=== PATIENT | male | born 1990 | race Caucasian/White ===

== ENCOUNTER → 2018-10-07 | Emergency (ER) | payer SELFPAY | END | disposition home or self-care (01) | LOC: OHCORT 12:50 | DX: Z00.00 Encounter for general adult medical examination without abnormal findings (principal) ==

== ENCOUNTER 2019-10-03 11:22 | Emergency (ER) | payer BC, OTHER ==
[2019-10-03 13:37] VITALS: BP 112/59
[2019-10-03 13:58] LABS: Influenza B Molecular POSITIVE (Negative)
--- NOTE | 2019-10-03 14:03 | UC ---
General HPI - HPI Summary HPI Summary: One day of red eyes and clear [facility] w/ runny nose. then last night started w/ nausea , fatigue, guerra, fever, muscle aches, weakness. When asked, patient would like to be tested for influenza. works at [employer]. - History of Current Complaint Chief Complaint: UCRespiratory Stated Complaint: COUGH, MIGUEL, BODY ACHES Time Seen by Provider: 10/03/19 13:33 Hx Obtained From: Patient Pain Intensity: 8 - Allergy/Home Medications Allergies/Adverse Reactions: Allergies Allergy/AdvReac Type Severity Reaction Status Date / Time No Known Allergies Allergy Verified 10/03/19 13:34 PMH/Surg Hx/FS Hx/Imm Hx - Additional Past Medical History Additional PMH: no chronic illness Previously Healthy: Yes - Surgical History Surgical History: None Surgery Procedure, Year, and Place: Left Clavicle ORIF, 07/04/16, [facility] [place] Dr. Huber; Lithotripsy, 2014, [place] - Family History Known Family History: Negative: Diabetes - Social History Alcohol Use: Occasionally Substance Use Type: None Smoking Status (MU): Never Smoked Tobacco - Immunization History Most Recent Influenza Vaccination: Not the 2015/2016 Season Review of Systems All Other Systems Reviewed And Are Negative: Yes Constitutional: Positive: Fever, Chills, Fatigue Skin: Negative: Negative Eyes: Positive: Drainage - L eye, Eye Redness Respiratory: Negative: Shortness Of Breath, Cough Gastrointestinal: Positive: Nausea. Negative: Abdominal Pain, Vomiting, Diarrhea Neurological: Positive: Headache, Weakness. Negative: Paresthesia, Numbness Physical Exam Triage Information Reviewed: Yes Appearance: Well-Appearing Vital Signs: Initial Vital Signs Temp 100.8 F 10/03/19 13:32 Pulse 100 10/03/19 13:32 Resp 18 10/03/19 13:32 BP 112/59 10/03/19 13:32 Pulse Ox 98 10/03/19 13:32 Vital Signs Reviewed: Yes Eyes: Positive: Conjunctiva Clear. Negative: Discharge ENT: Positive: Pharynx normal, TMs normal, Uvula midline Neck: Positive: Supple, Nontender, No Lymphadenopathy Respiratory Exam: Normal Cardiovascular Exam: Normal Neurological: Positive: Alert Skin: Negative: Rashes Course/Dx - Course Course Of Treatment: Viral syndrome, acute for 1-2 days. Able to maintain fluids, vitals good aside from slight fever. Exam unremarkable but rapid flu positive. he has decided to take tamiflu given symptoms and we discussed what tamiflu does and side effects. recommended flu shot. - Differential Dx - Multi-Symptom Differential Diagnoses: Other - Diagnoses Provider Diagnosis: Influenza Discharge ED - Sign-Out/Discharge Documenting (check all that apply): Patient Departure All imaging exams completed and their final reports reviewed: No Studies - Discharge Plan Condition: Good Disposition: HOME Prescriptions: Oseltamivir SUSP 75 MG dose* [Tamiflu SUSP 75 MG dose*] 75 mg PO BID 5 Days #10 oral.syrin Patient Education Materials: Influenza (DC) Forms: *Work Release Referrals: No Primary Care Phys,NOPCP [Primary Care Provider] - Additional Instructions: Please stay hydrated. We recommend the yearly flu vaccine as even if it is ineffective you can still get some protection. - Billing Disposition and Condition Condition: GOOD Disposition: Home - Attestation Statements Provider Attestation: I was available for consult. This patient was seen by the CARLOS. The patient was not presented to , seen by or examined by mi -Reba Vines MD
== END 2019-10-03 14:13 | disposition home or self-care (01) ==
LOC: UCCORT 11:22
DX: J11.1 Influenza due to unidentified influenza virus with other respiratory manifestations (principal)
CPT/HCPCS: 99212; G0463